=== PATIENT | female | born 1990 | race Caucasian/White ===

== ENCOUNTER → 2023-01-23 11:15 | Outpatient (CLI) | payer OTHER, SELFPAY ==
--- NOTE | 2023-01-23 | DI.RAD.S_ITS ---
PROCEDURE: FL BARIUM SWALLOW INDICATIONS: Dysphagia, pharyngoesophageal phase COMPARISON: None. FINDINGS: Function: There is normal esophageal peristalsis. Mild gastroesophageal reflux. There is normal transit of a calibrated barium tablet through the esophagus into the stomach. Morphology: Air-contrast images demonstrate normal mucosal morphology. Single contrast views show no esophageal strictures, extrinsic mass effects, or diverticula. Limited images of the stomach demonstrate normal appearance. IMPRESSION: 1. Mild gastroesophageal reflux. 2. Otherwise normal barium swallow. Dictated by: John Amaral M.D. on 01/24/2023 at 14:22 Approved by: John Amaral M.D. on 01/24/2023 at 14:22
== END ==
LOC: RAD 11:17
PROVIDERS: PCP Nurse Practitioner; Referring Provider Otolaryngology; Visit Provider Otolaryngology
DX: K21.9 Gastro-esophageal reflux disease without esophagitis (principal); R13.14 Dysphagia, pharyngoesophageal phase; R49.0 Dysphonia
CPT/HCPCS: 74221